=== PATIENT | male | born 1955 | race Caucasian/White ===

== ENCOUNTER → 2017-01-08 | Outpatient (CLI) | payer BC ==
--- NOTE | 2017-01-09 08:17 | MR ---
EXAMINATION TYPE: MR angio head wo con DATE OF EXAM: 01/08/2017 COMPARISON: MRI brain 12/13/2016 HISTORY: Cerebral aneurysm, Occlusion/stenosis CONTRAST: None TECHNIQUE: Multiplanar multiecho imaging on a 3.0 Majo magnet is performed through the [place] of [place] kristen. 3-D [id number] imaging is performed. Source images are reviewed on the computer in the axi al plane. Reconstructed images rotating on the computer are reviewed. FINDINGS: The internal carotid arteries bifurcate normally into A1 and M1 segments. The A2 segments are normal. Middle cerebral artery branches are normal. Anterior communicating artery is patent but small. The right posterior communicating artery is absent. The left posterior communicating artery is patent. This appears to be terminating left posterior cere bral artery was small patent proximal left P1 segment. Vertebrobasilar arteries within the [id number] are normal. Right vertebral artery is dominant. Po sterior cerebral vasculature is normal. No suspicious aneurysm or aneurysmal dilatation is evident. No obstructions are identified. No significant flow-limiting stenosis is evident. IMPRESSIONS: 1. NORMAL MRA [place] OF [place]. 2. Normal variant anatomy of the left posterior communicating artery terminating in the left P1 segme nt likely causes the appearance from the previous exam.
== END | disposition home or self-care (01) ==
LOC: RADMRIMAIN 10:55
PROVIDERS: ATTEND Psychiatry & Neurology Neurology
DX: I66.02 Occlusion and stenosis of left middle cerebral artery (principal)
CPT/HCPCS: 70544

== ENCOUNTER → 2018-03-10 | Outpatient (CLI) | payer BC ==
--- NOTE | 2018-03-10 14:35 | XR ---
EXAMINATION TYPE: XR abdomen 1V DATE OF EXAM: 03/10/2018 COMPARISON: NONE HISTORY: Flank pain TECHNIQUE: One view abdominal series FINDINGS: The osseous structures are intact. The bowel gas pattern is nonspecific. Calcification in the pelvis are nonspecific but likely vascular. Renal outlines are somewhat obscured by bowel content. No obvio us renal calculi seen. Although, a 6 mm area of increased density overlying the right renal outline m ay represent a renal calculus. Curvature the spine with hypertrophic and degenerative changes noted. IMPRESSION: 1. Nonspecific pelvic calcifications. Right renal outlines are partially obscured by bowel content. F indings suspicious for a right-sided renal calculus measuring 6 mm which could be correlated with CT scan noncontrast as clinically warranted.
== END | disposition home or self-care (01) ==
LOC: RADXRYALE 10:11
PROVIDERS: ATTEND Internal Medicine
DX: N50.89 Other specified disorders of the male genital organs (principal)
CPT/HCPCS: 74018